=== PATIENT | female | born 2000 | race Hispanic/Latino ===

== ENCOUNTER 2025-07-02 06:58 | Emergency (ER) | payer OTHER, SELFPAY ==
--- NOTE | ~2025-07-02 | XR_ITS ---
Examination: XR knee RT min 4V Clinical History: ANTERIOR KNEE LAC Comparison: None Technique: 4 views right knee Findings/impression: 1. No fracture, dislocation, or effusion right knee. 2. No radiopaque foreign body. 3. Soft tissue injury infrapatellar. Reviewed, dictated and finalized at location R.
[2025-07-02 06:58] VITALS: BP 124/90; PULSE 80; RESP 18; TEMP 37; O2SAT 98
--- NOTE | 2025-07-02 07:37 | ED.WOUNDLAC ---
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 Onset (ago): hour(s) Extremity Location: Right: knee ( laceration and knee injury) Place: home Patient tetanus UTD: No Context: accidental Related Data Home Medications ?Medication ?Instructions ?Recorded ?Confirmed ?Last Taken ?Type No Home Medications 07/02/25 07/02/25 Unknown History Allergies Allergy/AdvReac Type Severity Reaction Status Date / Time No Known Allergies Allergy Verified 07/02/25 07:13 Review of Systems Review of Systems: All systems reviewed & are unremarkable except as noted in HPI and below Exam Const: General: healthy appearing, no acute distress and alert Nutritional Appearance: well nourished Orientation/consciousness: patient oriented x3 Resp: Effort & Inspection: normal respiratory effort Auscultation: clear to auscultation bilaterally Cardio: Rate: regular rate Rhythm: regular rhythm GI: GI Palp: Yes Soft to palpation Skin: Wounds: wounds noted Other: 2Cm gaping laceration anterior right knee Neuro: General: patient oriented x3 and moves all extremities Course Course Emergency Course: patient has [address] the right knee patient tolerated procedure well did have mild vasovagal event but patient was sitting and responded appropriately appropriately no blood loss x-ray performed showed no acute fractures. Vital Signs Vital signs: Vital Signs Temperature 37.0 C 07/02/25 06:58 Pulse Rate 80 07/02/25 06:58 Respiratory Rate 18 07/02/25 06:58 Blood Pressure 124/90 07/02/25 06:58 Pulse Oximetry 98 07/02/25 06:58 Oxygen Delivery Room Air 07/02/25 06:58 Temperature 37.0 C 07/02/25 06:58 Pulse Rate 80 07/02/25 06:58 Respiratory Rate 18 07/02/25 06:58 Blood Pressure 124/90 07/02/25 06:58 Pulse Oximetry 98 07/02/25 06:58 Oxygen Delivery Room Air 07/02/25 06:58 Procedures Laceration Laceration 1: Date: 07/02/25 Time: 07:45 Site: lower extremity Side (If applicable): right Description: linear Depth: simple, single layer Local Anesthetic: lidocaine 1% Amount of anesthesia used (mL): 10 Pre-repair: wound explored and irrigated ====== Skin Level ====== Skin layer closed with: vicryl Size (cm): 4-0 Number of sutures: 8 Technique: simple, interrupted ====== Subcutaneous Layer ====== ====== Muscle Layer ====== ====== Tendon Layer ====== Critical Care Time Critical Care Time Critical Care Time: No Discharge Plan Discharge Clinical Impression: Laceration Knee sprain Qualifiers: Encounter type: initial encounter Involved ligament of knee: other ligament Laterality: right Qualified Code(s): S83.8X1A - Sprain of other specified parts of right knee, initial encounter Patient Disposition: Home Condition: Stable Instructions: Antibiotic Form, Knee Sprain (ED), Laceration (ED) Additional Instructions: advised Tylenol or Motrin as needed for pain and follow with primary in 8 days for suture removal. Patient Language: Citizen Of [place] Prescriptions: No Action No Home Medications Follow-up/Referrals: UNKNOWN,DOCTOR [Non-Staff]
--- NOTE | 2025-07-02 07:50 | PC.NURSE ---
Patient got nauseated during sutures, zofran to be administered.
[2025-07-02] MEDS: ONDANSETRON HCL ODT 4 MG TABLET PO (08:02)
[2025-07-02 08:30] VITALS: BP 111/83; PULSE 81; RESP 15; O2SAT 97
== END 2025-07-02 08:31 | disposition home or self-care (01) ==
PROVIDERS: Emergency Provider Emergency Medicine; Referring Provider Family Medicine
DX: S81.011A Laceration without foreign body, right knee, initial encounter (principal); S83.8X1A Sprain of other specified parts of right knee, initial encounter; W45.8XXA Other foreign body or object entering through skin, initial encounter
CPT/HCPCS: 12001; 73564; 99283; A9270

== ENCOUNTER 2025-07-10 15:33 | Emergency (ER) | payer OTHER, SELFPAY ==
[2025-07-10 15:47] VITALS: BP 137/87; PULSE 74; RESP 16; TEMP 36.6; O2SAT 100
--- NOTE | 2025-07-10 16:21 | ED.WOUNDLAC ---
HPI - Wound/Laceration General Chief Complaint: Wound/Laceration Stated Complaint: suture removal Time Seen by Provider: 07/10/25 16:14 Source: patient Mode of arrival: ambulatory Limitations: no limitations History of Present Illness HPI narrative: 24-year-old here for suture removal. Patient states that she was seen on 07/02 for laceration had sutures placed on the right knee. Presently has no complaints denies any drainage from the wound Onset (ago): day(s) (8) Extremity Location: Right: knee Related Data Home Medications ?Medication ?Instructions ?Recorded ?Confirmed ?Last Taken ?Type No Home Medications 07/02/25 07/02/25 Unknown History Allergies Allergy/AdvReac Type Severity Reaction Status Date / Time No Known Allergies Allergy Verified 07/02/25 07:13 Review of Systems Review of Systems: All systems reviewed & are unremarkable except as noted in HPI and below Constitutional: Constitutional: Reports no additional constitutional complaints Eyes: Eyes: Reports no additional eye complaints ENT: Reports system reviewed and no additional complaints, except as documented Cardiovascular: Cardiovascular: Reports no additional cardiovascular complaints Respiratory: Respiratory: Reports no additional respiratory complaints Gastrointestinal: Gastrointestinal: Reports no additional gastrointestinal complaints Musculoskeletal: Musculoskeletal: Reports as per HPI Exam Narrative: GENERAL: Well-appearing, well-nourished, and in no acute distress. HEAD: Normocephalic, atraumatic. EYES: PERRLA and EOMI. ENT: Nares clear, no rhinorrhea or epistaxis. Mucous membranes moist. NECK: Supple. CHEST: Clear to auscultation. No respiratory distress. HEART: Regular rate and rhythm. No murmur heard. Normal peripheral pulses.. EXTREMITIES: Normal range of motion. No edema. laceration on the right knee with intact sutures SKIN: Warm, dry, no rash. NEURO: No focal deficits. Alert and oriented x3. PSYCH: Normal mood and affect. Course Course Emergency Course: sutures removed from the right knee . Vital Signs Vital signs: Vital Signs Temperature 36.6 C 07/10/25 15:47 Pulse Rate 74 07/10/25 15:47 Respiratory Rate 16 07/10/25 15:47 Blood Pressure 137/87 07/10/25 15:47 Pulse Oximetry 100 07/10/25 15:47 Oxygen Delivery Room Air 07/10/25 15:47 Temperature 36.6 C 10/10/25 15:47 Pulse Rate 74 07/10/25 15:47 Respiratory Rate 16 07/10/25 15:47 Blood Pressure 137/87 07/10/25 15:47 Pulse Oximetry 100 07/10/25 15:47 Oxygen Delivery Room Air 07/10/25 15:47 Discharge Plan Discharge Clinical Impression: Visit for suture removal Patient Disposition: Home Condition: Stable Instructions: Stitches Removal (ED) Additional Instructions: keep it clean , if infection follow with your doctor Patient Language: [place] Prescriptions: No Action No Home Medications Follow-up/Referrals: Jose Mix DO [Primary Care Provider, [facility]] Time of Disposition: 16:22
[2025-07-10 16:36] VITALS: BP 133/63; PULSE 66; RESP 12; TEMP 36.6; O2SAT 99
--- NOTE | 2025-07-10 16:41 | PC.NURSE ---
On 07/10/25, the student, [quentin lopez ], provided care and completed [facility] documentation on this patient. I have reviewed the student's documentation and agree with the findings.
== END 2025-07-10 16:36 | disposition home or self-care (01) ==
LOC: CHSED 16:40
PROVIDERS: Emergency Provider Family Medicine; PCP Family Medicine
DX: Z48.02 Encounter for removal of sutures (principal)
CPT/HCPCS: 15853; 99282